=== PATIENT | male | born 1955 | race Caucasian/White ===

== ENCOUNTER → 2023-10-11 07:38 | Outpatient (REF) | payer MEDICARE, SELFPAY | LOC: WOUND 07:38 | PROVIDERS: ATTENDING PHYSICIAN Surgery | DX: L84 Corns and callosities (principal); E11.8 Type 2 diabetes mellitus with unspecified complications; N18.2 Chronic kidney disease, stage 2 (mild); E11.22 Type 2 diabetes mellitus with diabetic chronic kidney disease; R60.0 Localized edema | CPT/HCPCS: 99204 ==

== ENCOUNTER → 2023-10-18 09:18 | Outpatient (REF) | payer MEDICARE, SELFPAY | LOC: WOUND 09:18 | PROVIDERS: ATTENDING PHYSICIAN Surgery | DX: L84 Corns and callosities (principal); E11.8 Type 2 diabetes mellitus with unspecified complications; N18.2 Chronic kidney disease, stage 2 (mild); E11.22 Type 2 diabetes mellitus with diabetic chronic kidney disease; R60.0 Localized edema | CPT/HCPCS: 99212 ==